=== PATIENT | male | born 1980 | race Hispanic/Latino ===

== ENCOUNTER → 2024-02-06 | Emergency (ER) | payer BC, SELFPAY ==
[~2024-02-06] MED LIST: AMLODIPINE 10 MG TAB ONE; NA CHLORIDE 0.9% 1,000 ML ONE; lisinopriL 10 MG TAB ONE
--- OUTSIDE RECORDS SUMMARY | 2024-02-06 18:25 | XMS REPORT | Continuity of Care Document ---
Author Name Unknown Address [address] [facility] [address] [place] [id number] [facility] thconnect Address [address] [facility]. 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 Role Phone Gaby Hernandez Attending Clinician Unavailable Bk De Jesus DO Attending Clinician [phone] Nguyen Live MD Attending Clinician NGUYEN LIVE Attending Clinician Unavailable Payers Payer Name Policy Type Policy Number Effective Date Expirati on Date Source Problems Condition Name Condition Details Condition Category Status Onset Date Resolution Date Last Treatment Date Treating Clinician Comments Source Obstructiv e sleep apnea syndrome Obstructiv e sleep apnea syndrome Problem Active [facility] Reflux Reflux Problem Active [facility] Asthma Asthma Problem Active [facility] Obesity, morbid, BMI 40.0-49.9 Obesity, morbid, BMI 40.0-49.9 Problem Active [facility] Hypertensi on Hypertensi on Problem Active [facility] Mixed hyperlipid emia Mixed hyperlipid emia Problem Active [facility] Allergies, Adverse Reactions, Alerts Allergy Name Allergy Type Status Severity Reaction(s) Onset Date Inactive Date Treating Clinician Comments Source NO KNOWN ALLERGIE S Drug Class Active [facility] Social History Social Habit Start Date Stop Date Quantity Comments Source Exposure to SARS-CoV-2 (event) Not sure [facility] Sex Assigned At 1980 00:00:00 1980 00:00:00 [facility] Smoking Status Start Date Stop Date Source Unknown if ever smoked [facility] Medications Ordered Medication Name Filled Medication Name Start Date Stop Date Current Medication? Ordering Clinician Indication Dosage Frequency Signature (SIG) Comments Components Source LISINOPRIL- HYDROCHLORO THIAZIDE ORAL 2019-11 20:06: 18 Yes Take by mouth. [facility] LISINOPRIL- HYDROCHLORO THIAZIDE ORAL 2019-11 20:06: 18 Yes Take by mouth. [facility] LISINOPRIL- HYDROCHLORO THIAZIDE ORAL 2019-11 20:06: 18 Yes Take by mouth. [facility] Albuterol Sulfate Albuterol Sulfate 2018-11 00:00: 00 Yes Gaby [place] 3 ml as needed [facility] Lipitor Lipitor 06-15 00:00: 00 Yes Gaby [place] 1 tablet at bedtime [facility] Losartan Potassium Losartan Potassium Yes Gaby [place] 1 tablet [facility] Advair Diskus Advair Diskus Yes Gaby [place] 1 puff [facility] Albuterol Sulfate HFA Albuterol Sulfate HFA Yes Gaby [place] 2 puffs as needed [facility] Vital Signs Vital Name Observation Time Observation Value Comments S ource Diastolic blood pressure 2020-11-14 20:05:00 83 mm[Hg] [place] [facility] Heart rate 2020-11-14 20:05:00 114 /min [facility] Respiratory rate 2020-11-14 20:05:00 19 /min [facility] Body height 2020-11-14 20:05:00 175.3 cm [facility] Body weight 2020-11-14 20:05:00 114.851 kg [facility] BMI 2020-11-14 20:05:00 37.39 kg/m2 [facility] Systolic blood pressure 2020-11-14 20:05:00 121 mm[Hg] [place] [facility] Procedures Procedure Date / Time Performed Performing Clinicia n Source POCT URINALYSIS AUTO 2020-11-14 20:26:00 Gerald Live [facility] Encounters Start Date/Time End Date/Time Encounter Type Admission Type Attending Clinicians Care Facility Care Department Encounter ID Source 2021-12-10 11:48:21 Outpatient Gaby Hernandez [facility] [id number] [facility] 2021-01-30 00:00:00 2021-01-30 00:00:00 Patient Outreach Neal Bk Keyes [facility] [id number] [facility] 2020-11-14 13:55:25 2020-11-14 14:36:37 Office Visit [facility] Vaishnavi Mccullough [facility] [id number] [facility] 2020-11-14 14:00:00 2020-11-14 14:00:00 Outpatient R MARAI T [facility] [id number] [facility] 2020-04-22 14:40:00 2020-04-22 14:40:[address] [facility] [id number] [facility] 2020-04-17 14:30:00 2020-04-17 14:30:[address] [facility] [id number] [facility] 2019-10-19 16:00:00 2019-10-19 16:00:[address] [facility] [id number] [facility] 2019-01-11 09:00:00 2019-01-11 09:00:[address] [facility] [id number] [facility] 2018-07-08 08:30:00 2018-07-08 08:30:[address] [facility] [id number] [facility] 2018-06-15 09:48:00 2018-06-15 09:48:[address] [facility] [id number] [facility] 2018-06-09 09:00:00 2018-06-09 09:00:00 [facility] [id number] [facility] Results Test Description Test Time Test Comments Results Result Co mments Source [facility], [id number] 20:27:00 * Test Item Value Reference Range Interpretation Comme nts POCT U SP GRAV (test code = 3255) 1.030 mg/dl 1.005-1.025 A POCT PH U (test code = 3254) 6.0 mg/dl 5-8 POCT U LEUK EST (test code = 3263) Negative Negative - Negative POCT U NIT (test code = 3262) Negative Negative - Negati ve POCT U PROT (test code = 3259) trace Negative - Negative POCT U GLU (test code = 3256) Negative Negative - Negati ve POCT U KETONE (test code = 3258) Trace Negative - Negative POCT U UROBILI (test code = 3260) 2.0 mg/dl 0.2-1 A POCT U BILI (test code = 3261) small Negative - Negative POCT U BLD (test code = 3257) Negative Negative - Negati ve POCT U COLOR (test code = 3266) yellow POCT U APPEAR (test code = 3267) clear Lab Interpretation (test cod e = [id number]) Abnormal [facility]
[2024-02-06 19:14] LABS: Absolute Basophils 0.1 K/uL (0-0.5); Absolute Eosinophils 0.3 K/uL (0-0.5); Absolute Lymphocytes (CBC) 2.1 K/uL (0.7-4.9); Absolute Monocytes 0.7 K/uL (0.1-1.3); Basophils % 1.1 % (0-1.3); Hematocrit 49.5 % (39.6-49.0); Hemoglobin 17.1 g/dL (13.6-17.9); Lymphocytes % 25.4 % (15.3-44.8); MCH 30.7 pg (27.0-35.0); MCHC 34.5 g/dL (32.0-36.0); MPV 8.1 fL (7.6-11.3); Monocytes % 8.9 % (3.3-12.3); Neutrophils % 60.6 % (41.7-73.7); Nucleated Red Blood Cells % 0.2 % (0-0); Platelets 233 thou/uL (152-406); RBC Red Blood Cell Count 5.56 M/uL (4.33-5.43); Red Cell Distribution Width 14.6 % (12.1-15.2)
[2024-02-06 19:36] LABS: Albumin 3.6 g/dL (3.4-5.0); Anion Gap 8.6 mEq/L (5.0-15.0); Bilirubin Direct 0.2 mg/dL (0-0.2); Bilirubin Indirect, Calculated 0.6 mg/dL (0.2-0.8); Bilirubin Total 0.8 mg/dL (0.2-1.0); Globulin 3.6 g/dL (2.3-3.5); Magnesium 2.1 mg/dL (1.6-2.4); Potassium 3.6 mEq/L (3.5-5.1); Protein, Total 7.2 g/dL (6.4-8.2); Troponin High Sensitivity 4.2 pg/mL (<58.9)
--- NOTE | 2024-02-06 19:39 | RAD REPORT ---
EXAM DESCRIPTION: RAD - Chest Single View - 02/06/2024 7:21 pm CLINICAL HISTORY: COUGH Chest pain. COMPARISON: CHEST PA AND LAT 2 VIEW dated 03/19/2014 FINDINGS: Portable technique limits examination quality. The lungs are grossly clear. The heart is normal in size. No displaced fractures. IMPRESSION: No acute intrathoracic process suspected.
[2024-02-06 19:50] LABS: Specific Gravity 1.015 (1.005-1.030); Sqamous Epithelial <5 /HPF (None Seen); Urine Bacteria <20 /HPF (<20); Urine Bilirubin NEGATIVE (Negative); Urine Blood Negative (Negative); Urine Clarity Clear (Clear); Urine Color Light-Yellow (Yellow); Urine Culture Reflex Order NOT NEEDED; Urine Glucose NEGATIVE (Negative); Urine Ketones NEGATIVE (Negative); Urine Microscopic Reflex YN ORDER UMIC; Urine Nitrite NEGATIVE (Negative); Urine Protein NEGATIVE (Negative); Urine RBC <5 /HPF (None Seen); Urine Urobilinogen Normal (Normal)
--- NOTE | 2024-02-06 20:25 | EDPHYS ---
Physician Documentation [facility] Name: Gabriel Vital Jr Age: 44 yrs Sex: Male : 1980 Arrival Date: 02/06/2024 Time: 18:21 Bed 19 Private MD: Aftab Evans ED Physician Alin Bellamy HPI: 02/05 19:09 This 44 yrs old Male presents to ER via Ambulatory with complaints of High blaine Blood Pressure. 19:09 The patient has elevated blood pressure and discovered this at home, with a home blaine device. Onset: The symptoms/episode began/occurred 2 week(s) ago. Modifying factors: The symptoms are aggravated by activity, The symptoms are alleviated by remaining still. Associated signs and symptoms: The patient has no apparent associated signs or symptoms. Severity of symptoms: At its worst the blood pressure was moderate, in the emergency department the blood pressure is unchanged. The patient has experienced similar episodes in the past, multiple times. Historical: - Allergies: 18:41 No Known Allergies; nj1 - PMHx: 18:41 Hypertensive disorder; nj1 - Immunization history:: Client reports receiving the 2nd dose of the Covid vaccine. - Social history:: Smoking status: Patient denies any tobacco usage or history of. ROS: 19:09 Constitutional: Negative for fever, chills, and weight loss, Eyes: Negative for injury, blaine pain, redness, and discharge, ENT: Negative for injury, pain, and discharge, Neck: Negative for injury, pain, and swelling, Cardiovascular: Negative for chest pain, palpitations, and edema, Respiratory: Negative for shortness of breath, cough, wheezing, and pleuritic chest pain, Abdomen/GI: Negative for abdominal pain, nausea, vomiting, diarrhea, and constipation, Back: Negative for injury and pain, : Negative for injury, bleeding, discharge, and swelling, MS/Extremity: Negative for injury and deformity, Skin: Negative for injury, rash, and discoloration, Neuro: Negative for headache, weakness, numbness, tingling, and seizure, Psych: Negative for depression, anxiety, suicide ideation, homicidal ideation, and hallucinations, Allergy/Immunology: Negative for hives, rash, and allergies, Endocrine: Negative for neck swelling, polydipsia, polyuria, polyphagia, and marked weight changes, Hematologic/Lymphatic: Negative for swollen nodes, abnormal bleeding, and unusual bruising, Exam: 19:09 Constitutional: This is a well developed, well nourished patient who is awake, alert, blaine and in no acute distress. Head/Face: Normocephalic, atraumatic. Eyes: Pupils equal round and reactive to light, extra-ocular motions intact. Lids and lashes normal. Conjunctiva and sclera are non-icteric and not injected. Cornea within normal limits. Periorbital areas with no swelling, redness, or edema. ENT: Nares patent. No nasal discharge, no septal abnormalities noted. Tympanic membranes are normal and external auditory canals are clear. Oropharynx with no redness, swelling, or masses, exudates, or evidence of obstruction, uvula midline. Mucous membranes moist. Neck: Trachea midline, no thyromegaly or masses palpated, and no cervical lymphadenopathy. Supple, full range of motion without nuchal rigidity, or vertebral point tenderness. No Meningismus. Chest/axilla: Normal chest wall appearance and motion. Nontender with no deformity. No lesions are appreciated. Cardiovascular: Regular rate and rhythm with a normal S1 and S2. No gallops, murmurs, or rubs. Normal PMI, no JVD. No pulse deficits. Respiratory: Lungs have equal breath sounds bilaterally, clear to auscultation and percussion. No rales, rhonchi or wheezes noted. No increased work of breathing, no retractions or nasal flaring. Abdomen/GI: Soft, non-tender, with normal bowel sounds. No distension or tympany. No guarding or rebound. No evidence of tenderness throughout. Back: No spinal tenderness. No costovertebral tenderness. Full range of motion. Male : Normal genitalia with no discharge or lesions. Skin: Warm, dry with normal turgor. Normal color with no rashes, no lesions, and no evidence of cellulitis. MS/ Extremity: Pulses equal, no cyanosis. Neurovascular intact. Full, normal range of motion. Neuro: Awake and alert, GCS 15, oriented to person, place, time, and situation. Cranial nerves II-XII grossly intact. Motor strength 5/5 in all extremities. Sensory grossly intact. Cerebellar exam normal. Normal gait. Psych: Awake, alert, with orientation to person, place and time. Behavior, mood, and affect are within normal limits. 19:16 ECG was reviewed by the Attending Physician. [facility] Vital Signs: 18:39 BP 147 / 101; Pulse 91; Resp 18; Temp 97.3(TE); Pulse Ox 94% on R/A; Weight 106.59 kg; nj1 Height 5 ft. 9 in. ; 19:43 BP 150 / 101; Pulse 77; Resp 18; Pulse Ox 96% on R/A; Pain 0/10; tm6 20:47 BP 136 / 93; Pulse 83; Resp 15; Temp 97.3(TE); Pulse Ox 96% on R/A; Pain 0/10; tm6 18:39 Body Mass Index 34.70 (106.59 kg, 175.26 cm) nj1 19:43 Pain Scale: Adult tm6 20:47 Pain Scale: Adult tm6 MDM: 18:34 Patient medically screened. [facility] 19:12 Differential diagnosis: hypertensive crisis, Malignant HTN. Data reviewed: vital signs, [facility] nurses notes, lab test result(s), EKG, radiologic studies, plain films. Consideration of Admission/Observation Escalation of care including admission/observation considered. I considered the following discharge prescriptions or medication management in the emergency department Medications were administered in the Emergency Department. See MAR. Independent interpretation of the following test(s) in the Emergency Department EKG: See my EKG interpretation above. Test considered but Not performed: Ultrasound 2 d echo. Historians other than the Patient: patient well informed. Care significantly affected by the following chronic conditions: Hypertension. Counseling: I had a detailed discussion with the patient and/or guardian regarding the historical points, exam findings, and any diagnostic results supporting the discharge/admit diagnosis, the presence of at least one elevated blood pressure reading (>120/80) during this emergency department visit, lab results, radiology results, the need for outpatient follow up, for definitive care, a med surg rn, an corporate safety director. 02/05 18:35 Order name: Basic Metabolic Panel; Complete Time: 20:22 [facility] 02/05 20:22 Interpretation: Normal except: CRE 1.39; GFR 64. cp 02/05 18:35 Order name: CBC with Diff; Complete Time: 19:26 [facility] 02/05 20:23 Interpretation: Normal except: RBC 5.56; HCT 49.5. cp 02/05 18:35 Order name: LFT's; Complete Time: 20:22 [facility] 02/05 20:22 Interpretation: Normal except: ALT 65; GLOB 3.6; A/G 1.0. 02/05 18:35 Order name: Magnesium; Complete Time: 20:22 [facility] 02/05 20:23 Interpretation: Reviewed. 02/05 18:35 Order name: NT PRO-BNP; Complete Time: 20:22 [facility] 02/05 20:23 Interpretation: Reviewed. 02/05 18:35 Order name: PT-INR; Complete Time: 19:26 [facility] 02/05 18:35 Order name: Troponin HS; Complete Time: 20:22 [facility] 02/05 20:22 Interpretation: Reviewed. 02/05 18:35 Order name: Urinalysis w/ reflexes; Complete Time: 20:22 [facility] 02/05 20:22 Interpretation: Normal except: UESTR 25. 02/05 18:35 Order name: XRAY Chest (1 view); Complete Time: 20:22 [facility] 02/05 20:23 Interpretation: Report review. 02/05 18:35 Order name: EKG; Complete Time: 18:35 [facility] 02/05 18:35 Order name: Cardiac monitoring; Complete Time: 19:00 [facility] 02/05 18:35 Order name: EKG - Nurse/Tech; Complete Time: 19:00 [facility] 02/05 18:35 Order name: IV Saline Lock; Complete Time: 19:00 [facility] 02/05 18:35 Order name: Labs collected and sent; Complete Time: 19:00 [facility] 02/05 18:35 Order name: O2 Per Protocol; Complete Time: 19:00 [facility] 02/05 18:35 Order name: O2 Sat Monitoring; Complete Time: 19:00 [facility] EC:16 Rate is 89 beats/min. Rhythm is regular. QRS [place] is Normal. ID interval is normal. QRS blaine interval is normal. QT interval is normal. No Q waves. T waves are Normal. No ST changes noted. Clinical impression: Normal ECG and No evidence of ischemia. Interpreted by me. Reviewed by me. Administered Medications: 19:00 Drug: NS 0.9% IV 1000 ml IV at 125 ml/hr continuous Route: IV; Rate: 125 ml/hr; Site: cp4 right antecubital; 19:27 Drug: Norvasc PO 10 mg PO once Route: PO; tm6 19:27 Drug: Lisinopril PO 20 mg PO once Route: PO; tm6 Disposition Summary: 02/06/24 20:24 Discharge Ordered Notes: Location: Home cp Problem: new cp Symptoms: have improved cp Condition: Stable cp Diagnosis - Essential (primary) hypertension cp - Obesity, unspecified cp Followup: blaine - With: Aftab Evans MD - When: 2 - 3 days - Reason: Recheck today's complaints, Re-evaluation by your physician Followup: blaine - With: Jj Majano MD - When: 2 - 3 days - Reason: Recheck today's complaints, Re-evaluation by your physician Discharge Instructions: - Discharge Summary Sheet blaine - Hypertension, Adult blaine - Obesity, Adult blaine - Hypertension, Adult, [id number] blaine - How the Heart Works blaine - How to Take Your Blood Pressure, [id number] blaine - Aspirin and Your Heart blaine - Managing Your Hypertension blaine Forms: - Medication Reconciliation Form cp - Thank You Letter cp - Antibiotic Education cp - Prescription Opioid Use cp - Patient Portal Instructions cp - Leadership Thank You Letter cp Prescriptions: - Lotrel 10-20 mg Oral capsule - take 1 capsule ORAL route once; 20 capsule; Refills: 0, Product Selection blaine Permitted Signatures: Dispatcher [employer] Alin Keane MD MD cha Page, Corey, PA PA cp Kelsey Roque RN RN nj1 Steph Mejia cp4 Bethany Faith RN RN tm6
--- NOTE | 2024-02-06 20:25 | ER ---
Nurse's Notes [facility] Name: Gabriel Vital Jr Age: 44 yrs Sex: Male : 1980 Arrival Date: 02/06/2024 Time: 18:21 Bed 19 Private MD: Aftab Evans Diagnosis: Essential (primary) hypertension;Obesity, unspecified Presentation: 02/05 18:39 Chief complaint: Patient states: Saw his blood pressure monitor and decided to check nj1 his bp. Was on medication a few years back but "weaned my self off medication". No chest pain, "feel normal", but readings were around 147/112. Had leftover medications from when he used to take it, took a 100mg losartan and a 40mg olmesartan. Coronavirus screen: Vaccine status: Patient reports receiving the 2nd dose of the covid vaccine. Ebola Screen: Patient denies travel to an Ebola-affected area in the 21 days before illness onset. Initial Sepsis Screen: Does the patient meet any 2 criteria? HR > 90 bpm. No. Patient's initial sepsis screen is negative. Does the patient have a suspected source of infection? No. Patient's initial sepsis screen is negative. Risk Assessment: Do you want to hurt yourself or someone else? Patient reports no desire to harm self or others. Onset of symptoms was February 06, 2024. 18:39 Method Of Arrival: Ambulatory [facility] 18:39 Acuity: TUNDE 3 nj1 Historical: - Allergies: 18:41 No Known Allergies; nj1 - PMHx: 18:41 Hypertensive disorder; nj1 - Immunization history:: Client reports receiving the 2nd dose of the Covid vaccine. - Social history:: Smoking status: Patient denies any tobacco usage or history of. Screenin:[address] [facility] ED Fall Risk Assessment (Adult) History of falling in the last 3 months, cp4 including since admission No falls in past 3 months (0 pts) Confusion or Disorientation No (0 pts) Intoxicated or Sedated No (0 pts) Impaired Gait No (0 pts) Mobility Assist Device Used No (0 pt) Altered Elimination No (0 pt) Score/Fall Risk Level 0 - 2 = Low Risk Oriented to surroundings, Maintained a safe environment, Assessed \\T\\ reinforced patient's understanding of fall precautions, Hourly rounding (assess needs \\T\\ fall precautionary measures) done. Abuse screen: Denies threats or abuse. Nutritional screening: No deficits noted. Tuberculosis screening: No symptoms or risk factors identified. Assessment: 19:05 General: Appears in no apparent distress. Behavior is calm, cooperative, appropriate cp4 for age. Pain: Denies pain. Cardiovascular: Denies chest pain, Rhythm is sinus rhythm. 19:43 Reassessment: Patient and/or family updated on plan of care and expected duration. Pain tm6 level reassessed. Patient is alert, oriented x 3, equal unlabored respirations, skin warm/dry/pink. 20:47 Reassessment: Patient and/or family updated on plan of care and expected duration. Pain tm6 level reassessed. Patient is alert, oriented x 3, equal unlabored respirations, skin warm/dry/pink. Vital Signs: 18:39 BP 147 / 101; Pulse 91; Resp 18; Temp 97.3(TE); Pulse Ox 94% on R/A; Weight 106.59 kg; nj1 Height 5 ft. 9 in. ; 19:43 BP 150 / 101; Pulse 77; Resp 18; Pulse Ox 96% on R/A; Pain 0/10; tm6 20:47 BP 136 / 93; Pulse 83; Resp 15; Temp 97.3(TE); Pulse Ox 96% on R/A; Pain 0/10; tm6 18:39 Body Mass Index 34.70 (106.59 kg, 175.26 cm) nj1 19:43 Pain Scale: Adult tm6 20:47 Pain Scale: Adult tm6 ED Course: 18:23 Patient arrived in ED. mr 18:23 Aftab Evans MD is Private Physician. mr 18:29 Patient's name was called from ER lobby. No response. nj1 18:34 Alin Bellamy MD is Attending Physician. [facility] 18:41 Triage completed. nj1 18:42 Arm band placed on. nj1 18:52 EKG done, by ED staff. jg11 19:00 Steph Mejia is Primary Nurse. cp4 19:00 Provided Education on: use of call alvares. Warm blanket given. tm6 19:05 Bed in low position. Call light in reach. Side rails up X 1. cp4 19:05 No provider procedures requiring assistance completed. Inserted saline lock: 20 gauge cp4 in right antecubital area, using aseptic technique. 19:20 Bethany Faith, RN is Primary Nurse. tm6 19:23 XRAY Chest (1 view) In Process Unspecified. EDMS 19:39 Urinalysis w/ reflexes Sent. tm6 20:24 Aftab Evans MD is Referral Physician. cp 20:24 Jj Majano MD is Referral Physician. cp 20:48 IV discontinued, intact, bleeding controlled, No redness/swelling at site. Pressure tm6 dressing applied. Administered Medications: 19:00 Drug: NS 0.9% IV 1000 ml IV at 125 ml/hr continuous Route: IV; Rate: 125 ml/hr; Site: cp4 right antecubital; 19:27 Drug: Norvasc PO 10 mg PO once Route: PO; tm6 19:27 Drug: Lisinopril PO 20 mg PO once Route: PO; tm6 Medication: 19:05 VIS not applicable for this client. cp4 Outcome: 20:24 Discharge ordered by MD. cp 20:47 Discharged to home ambulatory, with family, tm6 20:47 Condition: stable 20:47 Discharge instructions given to patient, family, Instructed on discharge instructions, follow up and referral plans. medication usage, lifestyle changes such as healthy eating and exercise Demonstrated understanding of instructions, follow-up care, medications, Prescriptions given X 1, 20:48 Patient left the ED. tm6 Signatures: Dispatcher [employer] EDMS Alin Bellamy MD MD cha Rivera, Mary, Reg Reg mr Alin Rogers, ANNELISE PA cp Kelsey Roque RN RN nj1 Steph Mejia cp4 Behtany Faith RN RN tm6 Juan Luis Rivera jg11
[2024-02-06 21:01] VITALS: BP 136/93; TEMP 97.3; O2SAT 96
--- NOTE | 2024-02-07 14:15 | EKG ---
Test Date: 2024-02-06 Test Time: 17:48:43 Supervisor Case Loading: LILLIE MEASUREMENT RESULTS: Intervals: Rate: 89 MN: 138 QRSD: 84 QT: 368 QTc: 447 [place]: P: 61 MN: 138 QRS: 53 T: 37 INTERPRETIVE STATEMENTS: Normal sinus rhythm Normal ECG Compared to ECG 03/19/2014 21:09:48 Sinus tachycardia no longer present T-wave abnormality no longer present Electronically Signed On 02-07-24 14:13:37 CDT by Jj Majano
== END ==
LOC: ER 18:21
DX: I10 Essential (primary) hypertension (principal); E66.9 Obesity, unspecified; Z68.34 Body mass index [BMI] 34.0-34.9, adult
CPT/HCPCS: 36415; 71045; 80048; 80076; 81001; 83735; 83880; 84484; 85025; 85610; 93005; 99284; J7030